=== PATIENT | male | born 1955 | race Caucasian/White ===

== ENCOUNTER 2023-04-23 08:26 | Day surgery (SDC) | payer OTHER, BC ==
[2023-04-18 15:50] VITALS: BMI 43.0
[2023-04-23 09:33] VITALS: RESP 18; TEMP 97.6
[2023-04-23 09:51] VITALS: BP 110/70; PULSE 70
== END 2023-04-23 09:51 | disposition home or self-care (01) ==
LOC: FASU-ENDO 08:26
PROVIDERS: ATTEND Internal Medicine Gastroenterology
PROC: 0DJD8ZZ Inspection of Lower Intestinal Tract, Via Natural or Artificial Opening Endoscopic (ICD-10-PCS; principal; 2023-04-23 09:06)
DX: Z12.11 Encounter for screening for malignant neoplasm of colon (principal); Z85.038 Personal history of other malignant neoplasm of large intestine; Z98.0 Intestinal bypass and anastomosis status
CPT/HCPCS: 82962